=== PATIENT | female | born 1985 | race Caucasian/White ===

== ENCOUNTER 2018-12-15 22:20 | Emergency (ER) | payer OTHER ==
--- NOTE | 2018-12-15 23:15 | ER Document Report ---
ED General - General Chief Complaint: Chest Pain Stated Complaint: CHEST PAIN Time Seen by Provider: 12/15/18 23:14 Primary Care Provider: JOSHUA MELARA [NO LOCAL MD] - Follow up as needed Notes: Patient is a pleasant 33-year-old female who 8 days ago had a tubal ligation. Patient says that approximately 2-3 days after that she started noticing some pain in her chest. This is gradually worsened and she feels short of breath. She initially thought maybe it was just gas underneath her diaphragm being that she had a laparoscopic procedure however his progress and therefore she is come to the ER. No leg pain or leg swelling. No fevers. She does have a history of lupus. No vomiting. TRAVEL OUTSIDE OF THE [place] IN LAST 30 DAYS: No - Related Data Allergies/Adverse Reactions: Penicillins Allergy (Verified 03/07/12 16:05) Past Medical History - Social History Smoking Status: Never Smoker Frequency of alcohol use: None Drug Abuse: None Family History: Reviewed & Not Pertinent Past Surgical History: Reports: Hx Orthopedic Surgery - right forearm - Immunizations Hx Diphtheria, Pertussis, Tetanus Vaccination: Yes Review of Systems - Review of Systems Notes: My Normal Review Basic REVIEW OF SYSTEMS: CONSTITUTIONAL : Denies fever, chills, or sweats. Denies recent illness. EENT: Denies eye, ear, throat, or mouth pain or symptoms. Denies nasal or sinus congestion. CARDIOVASCULAR: Chest is worse with deep breathing. RESPIRATORY: Denies cough, cold, or chest congestion. Some shortness of breath with exertion. GASTROINTESTINAL: Denies abdominal pain. Denies nausea, vomiting, or diarrhea. MUSCULOSKELETAL: Denies neck or back pain or joint pain or swelling. SKIN: Denies rash or skin lesions. HEMATOLOGIC : History of lupus NEUROLOGICAL: Denies altered mental status or loss of consciousness. Denies headache. Denies weakness or paralysis or loss of use of either side. Denies problems with gait or speech. Denies sensory or motor loss. ALL OTHER SYSTEMS REVIEWED AND NEGATIVE. Physical Exam - Vital signs Vitals: Temp Pulse Resp BP Pulse Ox 98.5 F 68 18 123/70 100 12/15/18 23:01 12/15/18 23:01 12/15/18 23:01 12/15/18 23:01 12/15/18 23:01 - Notes Notes: General Appearance: Well nourished, alert, cooperative, no acute distress, mild obvious discomfort. Vitals: reviewed, See vital signs table. Eyes: PERRL, EOMI, Conjuctiva clear Mouth: No decreasd moisture Neck: Supple, no neck tenderness, No thyromegaly Lungs: No wheezing, No rales, No rhonci, No accessory muscle use, good air exchange bilaterally. Heart: Normal rate, Regular rythm, No murmur, no rub Abdomen: Normal BS, soft, No rigidity, No abdominal tenderness, No guarding, no rebound, no abdominal masses, no organomegaly. Both surgical incision sites appear to be healing appropriately. Extremities: good pulses in all extremities, no edema. Skin: warm, dry, appropriate color, no rash Neuro: speech clear, oriented x 3, normal affect, responds appropriately to questions. Course - Re-evaluation Re-evalutation: 12/16/18 02:26 Because of the patient's recent surgery and history of lupus that that is appropriate to go forward with CT of the chest to rule out PE. CTA was negative. Troponin is normal. Patient looks well. Pain is pleuritic but also she has pain at the diaphragm. This could be related to retained air from lap scopic procedure could also be related from pleurisy being that the pain is worse when she takes deep breath. At this time for the patient is safe to be discharged home. She looks well. I informed her to take [id number] pain medicines as needed. I encouraged her to follow-up closely with her surgeon this coming week. I encouraged her return to ER immediately if she has worsening pain, fevers, worsening difficulty breathing, or if she feels unwell. Patient agrees with plan and will be discharged home. Dictation of this chart was performed using voice recognition software; therefore, there may be some unintended grammatical errors. - Vital Signs Vital signs: Temp Pulse Resp BP Pulse Ox 98.5 F 68 19 119/80 100 12/15/18 23:01 12/15/18 23:01 12/16/18 00:01 12/16/18 00:01 12/16/18 00:01 - Laboratory Result Diagrams: 12/15/18 23:45 12/15/18 23:45 Laboratory results interpreted by me: 12/15/18 23:45 Hgb 11.5 L Hct 33.7 L - EKG Interpretation by Me Additional EKG results interpreted by me: 12/15/18 23:15 EKGs reviewed and interpreted by me. EKG shows sinus rhythm with a rate of [address] segment elevation or depression. No ischemic T wave inversions. AR interval, QRS duration, QT intervals are within normal range. No old EKG available for comparison. Discharge - Discharge Clinical Impression: Dyspnea Qualifiers: Dyspnea type: unspecified Qualified Code(s): R06.00 - Dyspnea, unspecified Chest pain Qualifiers: Chest pain type: unspecified Qualified Code(s): R07.9 - Chest pain, unspecified Condition: Good Disposition: HOME, SELF-CARE Additional Instructions: Please take over the counter pain medicine such as tylenol 500mg every 4 hours. Please do not over exert yourself. Please call your surgeon's office on Tuesday for reevaluation. Please return to the ER immediately if you develop fevers, worsening difficulty breathing, or feel that you are worsening in any way.
[2018-12-16 00:03] LABS: ABSOLUTE BASOPHILS # (AUTO) 0.1 10^3/uL (0.0-0.2); ABSOLUTE EOSINOPHILS # (AUTO) 0.2 10^3/uL (0.0-0.6); ABSOLUTE LYMPHOCYTES (AUTO) 2.8 10^3/uL (0.5-4.7); ABSOLUTE MONOCYTES (AUTO) 0.8 10^3/uL (0.1-1.4); ABSOLUTE NEUT (AUTO) 3.8 10^3/uL (1.7-8.2); BASOPHILS % (AUTO) 1.2 % (0-2); EOSINOPHILS % (AUTO) 2.8 % (0-6); HEMATOCRIT 33.7 % (36.0-47.0); HEMOGLOBIN 11.5 g/dL (12.0-15.5); LYMPHOCYTES % (AUTO) 36.7 % (13-45); MEAN CORPUSCULAR HEMOGLOBIN 27.4 pg (27.0-33.4); MEAN CORPUSCULAR HGB CONC 34.1 g/dL (32.0-36.0); MEAN CORPUSCULAR VOLUME 80 fl (80-97); MONOCYTES % (AUTO) 9.7 % (3-13); PLATELET COUNT 231 10^3/uL (150-450); RED CELL DISTRIBUTION WIDTH 13.6 % (11.5-14.0); SEGMENTED NEUTROPHILS % (AUTO) 49.6 % (42-78); TOTAL CELLS COUNTED % (AUTO) 100 %; WHITE BLOOD COUNT 7.7 10^3/uL (4.0-10.5)
[2018-12-16 00:20] LABS: ALANINE AMINOTRANSFERASE 28 U/L (9-52); ALBUMIN 4.4 g/dL (3.5-5.0); ALKALINE PHOSPHATASE 59 U/L (38-126); ANION GAP 10 (5-19); ASPARTATE AMINO TRANSFERASE 20 U/L (14-36); BILIRUBIN,DIRECT 0.1 mg/dL (0.0-0.4); BILIRUBIN,TOTAL 0.2 mg/dL (0.2-1.3); BLOOD UREA NITROGEN 12 mg/dL (7-20); CALCIUM 9.4 mg/dL (8.4-10.2); CARBON DIOXIDE 25 mmol/L (22-30); CHLORIDE 105 mmol/L (98-107); GLUCOSE 85 mg/dL (75-110); POTASSIUM 4.4 mmol/L (3.6-5.0); SODIUM 139.7 mmol/L (137-145); TOTAL PROTEIN 6.6 g/dL (6.3-8.2)
--- NOTE | 2018-12-16 00:33 | RADIOLOGY REPORT (SQ) ---
CLINICAL HISTORY: post op COMPARISON: None. TECHNIQUE: XR CHEST 1 VIEW 12/15/2018 11:35 PM LABOR LAW PROFESSOR FINDINGS: Cardiac silhouette is normal in size. Lungs are clear without consolidation, atelectasis, mass or edema. There is no pleural effusion. There is no pneumothorax. There are no acute osseous findings. IMPRESSION: Clear lungs.
--- NOTE | 2018-12-16 02:13 | RADIOLOGY REPORT (SQ) ---
CLINICAL HISTORY: dyspnea post op COMPARISON: None. TECHNIQUE: CT CHEST ANGIOGRAPHY WITHOUT THEN WITH IV CONTRAST on 12/16/2018 12:51 AM SYSTEMS ADMINISTRATION ANALYST. MIPS reconstructions were generated. This exam was performed according to our departmental dose-optimization program, which includes automated exposure control, adjustment of the mA and/or kV according to patient size and/or use of iterative reconstruction technique. MIP images were generated. FINDINGS: Thoracic aorta is normal in course and caliber without aneurysm or dissection. Pulmonary arteries are adequately opacified without acute or chronic filling defects. The heart is normal in size. There is no pericardial effusion. Intrathoracic lymph nodes are not enlarged. Bilateral breast implants are present. There is no pleural effusion, pleural thickening or pneumothorax. Central airways are patent. Lungs are clear with no consolidation, mass or interstitial lung disease. There are no acute abnormalities within the limited images of the upper abdomen. There are no acute osseous findings. No suspicious bony lesions. IMPRESSION: No aortic dissection or aneurysm. No pulmonary embolus. No pneumonia.
[2018-12-16 02:55] VITALS: BP 121/81
--- NOTE | 2018-12-16 08:45 | EKG REPORT ---
SEVERITY:- BORDERLINE ECG - SINUS RHYTHM : Confirmed by: Jad Nagel MD 16-Dec-2018 08:44:46
== END 2018-12-16 02:55 | disposition home or self-care (01) ==
LOC: ER 22:20
DX: R07.9 Chest pain, unspecified (principal); R06.00 Dyspnea, unspecified
CPT/HCPCS: 36415; 71045; 71275; 80053; 84484; 85025; 93005; 93010; 99284